=== PATIENT | female | born 1960 | race Caucasian/White ===

== ENCOUNTER 2020-05-15 18:43 | Emergency (ER) | payer MEDICARE, SELFPAY ==
--- NOTE | ~2020-05-15 | XR_ITS ---
EXAMINATION: XR chest 1V portable EXAM DATE: 05/15/2020 19:47 INDICATION: Shortness of breath, cough, fever for 5 days. TECHNIQUE: Portable AP frontal chest x-ray was obtained. Comparison is made to prior examination from 04/24/2010. FINDINGS: The lungs are clear. There are no pleural effusions. The cardiomediastinal silhouette is within normal limits. There is no pneumothorax suspected. Moderate thoracic scoliosis. Cervical fus ion hardware. Old bilateral rib fractures. IMPRESSION: No acute cardiopulmonary findings. Reviewed, dictated and finalized at location A. ON ATTENDANT
[2020-05-15 19:07] VITALS: BP 158/85; PULSE 89; RESP 18; TEMP 36.9; O2SAT 99
[2020-05-15] MEDS: SODIUM CHLORIDE 0.9% IV 1,000 ML 999 ML IV CONT (19:22)
[2020-05-15 19:28] LABS: Basophils Percent Auto 0.4 % (0.2-1.2); Eosinophils Absolute Auto 0.1 K/mm3 (0-0.3); Eosinophils Percent Auto 1.5 % (0-4.4); Hematocrit 38.5 % (37.0-47.0); Hemoglobin 13.2 g/dL (12.0-15.0); Immature Granulocyte Absolute 0.02 K/mm3 (0.00-0.031); Immature Granulocyte Percent A 0.4 % (0-0.5); Lymphocytes Absolute Auto 2.45 K/mm3 (0.9-3.2); Lymphocytes Percent Auto 47.3 % (18.3-44.2); Mean Corpuscular HGB Conc 34.3 g/dl (32-36); Mean Corpuscular Hemoglobin 31.4 pg (26-34); Mean Corpuscular Volume 91.7 fl (80-100); Mean Platelet Volume 10.6 fl (7.4-10.4); Monocytes Absolute Auto 0.5 K/mm3 (0.1-0.6); Monocytes Percent Auto 8.9 % (2.6-8.5); Neutrophils Absolute Auto 2.2 K/mm3 (1.3-6.7); Neutrophils Percent Auto 41.5 % (45.5-73.1); Platelet Count Result 206 k/mm3 (150-375); Red Cell Distribution Width 13.3 % (11.5-14.5); White Blood Count 5.2 K/mm3 (4.5-10.0)
[2020-05-15 19:39] LABS: Lactic Acid Reflex 0.7 mmol/L (0.7-2.1)
[2020-05-15 19:43] LABS: Alanine Aminotransferase 30 U/L (4-35); Albumin Level 4.2 g/dL (3.5-5.1); Alkaline Phosphatase 83 U/L (38-126); Anion Gap 5 mmol/L (8-16); Aspartate Amino Transferase 46 U/L (14-36); Bilirubin,Total 0.4 mg/dL (0.2-1.3); Blood Urea Nitrogen 8 mg/dL (7-17); CRP 0.8 mg/dL (<1.0); Calcium 9.1 mg/dL (8.4-10.2); Carbon Dioxide 30 mmol/L (22-30); Chloride 104 mmol/L (98-107); Estimated CRCL calculation 73 ml/min; Estimated Glomerular Filt Rate > 60; Glucose 84 mg/dL (65-105); Potassium 3.3 mmol/L (3.4-5.0); Sodium 139 mmol/L (137-145)
[2020-05-15 19:48] VITALS: BP 142/85; PULSE 81; RESP 16; O2SAT 99
--- NOTE | 2020-05-15 20:03 | ED.GENADULT ---
HPI - General Adult General Chief complaint: Shortness of Breath/Dyspnea Stated complaint: covid symptoms Time Seen by Provider: 05/15/20 18:45 Source: patient Mode of arrival: ambulatory Limitations: no limitations History of Present Illness HPI narrative: Patient is a 59-year-old female who presents with upper respiratory symptoms and shortness of breath and fatigue headache for the last several days unsure as to possible exposures but has been working around people without masks denies vomiting diarrhea chest pain history of pulmonary disease presents in no distress and has not been seen for this complaint on arrival is in the room in no distress and does not appear uncomfortable Related Data Allergies Allergy/AdvReac Type Severity Reaction Status Date / Time codeine Allergy Mild Verified 04/24/10 17:38 Review of Systems Review of Systems: All systems reviewed & are unremarkable except as noted in HPI and below Exam Narrative: Exam Narrative: GENERAL: Well-appearing, well-nourished, and in no acute distress. HEAD: Normocephalic, atraumatic. EYES: PERRLA and EOMI. ENT: Nares clear, no rhinorrhea or epistaxis. Mucous membranes moist. CHEST: Clear to auscultation. No respiratory distress. No wheezes rales or rhonchi HEART: Regular rate and rhythm. No murmur heard. EXTREMITIES: Normal range of motion. No edema. SKIN: Warm, dry, no rash. NEURO: No focal deficits. Alert and oriented x3. PSYCH: Normal mood and affect. Course Course Emergency Course: Patient evaluated at the emergency department hydrated no pneumonia on exam will be tested for COVID-19 afebrile nontoxic-appearing no distress felt appropriate for outpatient reevaluation instructed that she will have to follow with her primary care to get her COVID-19 results she understands this patient advised to self quarantine she agrees with this plan Vital Signs Vital signs: Vital Signs Temperature 98.4 F 05/15/20 19:07 Pulse Rate 89 05/15/20 19:07 Respiratory Rate 18 05/15/20 19:07 Blood Pressure 158/85 H 05/15/20 19:07 Pulse Oximetry 99 05/15/20 19:07 Temperature 98.4 F 05/15/20 19:07 Pulse Rate 81 05/15/20 19:48 Respiratory Rate 16 05/15/20 19:48 Blood Pressure 142/85 H 05/15/20 19:48 Pulse Oximetry 99 05/15/20 19:48 Medical Decision Making MDM Narrative Medical decision making narrative: Discussed case with patient who is nontoxic afebrile without emesis hydrated in the ER felt appropriate for outpatient reevaluation swabbed for Covid agreeing to self quarantine understands that she needs to follow with primary care to get her results Vital Signs Vital Signs: Vital Signs Temperature 98.4 F 05/15/20 19:07 Pulse Rate 89 05/15/20 19:07 Respiratory Rate 18 05/15/20 19:07 Blood Pressure 158/85 H 05/15/20 19:07 Pulse Oximetry 99 05/15/20 19:07 Temperature 98.4 F 05/15/20 19:07 Pulse Rate 81 05/15/20 19:48 Respiratory Rate 16 05/15/20 19:48 Blood Pressure 142/85 H 05/15/20 19:48 Pulse Oximetry 99 05/15/20 19:48 Lab Data Result diagrams: 05/15/20 19:18 05/15/20 19:18 Labs: Lab Results 05/15/20 05/15/20 05/15/20 Range/Units 19:18 19:18 19:18 WBC 5.2 (4.5-10.0) K/mm3 RBC 4.20 (4.2-5.4) M/mm3 Hgb 13.2 (12.0-15.0) g/dL Hct 38.5 (37.0-47.0) % MCV 91.7 (80-100) fl MCH 31.4 (26-34) pg MCHC 34.3 (32-36) g/dl RDW 13.3 (11.5-14.5) % Plt Count 206 (150-375) k/mm3 MPV 10.6 H (7.4-10.4) fl Immature Gran % (Auto) 0.4 (0-0.5) % Neut % (Auto) 41.5 L (45.5-73.1) % Lymph % (Auto) 47.3 H (18.3-44.2) % [place] % (Auto) 8.9 H (2.6-8.5) % Eos % (Auto) 1.5 (0-4.4) % Baso % (Auto) 0.4 (0.2-1.2) % Lymph # (Auto) 2.45 (0.9-3.2) K/mm3 [place] # (Auto) 0.5 (0.1-0.6) K/mm3 Eos # (Auto) 0.1 (0-0.3) K/mm3 Baso # (Auto) 0.0 (0.0-0.1) K/mm3 Abs Immat Gran (auto) 0.02 (0.00-0.031) K/mm
[2020-05-15 20:37] VITALS: BP 138/86; PULSE 82; RESP 16; TEMP 36.8; O2SAT 99
[2020-05-16 17:18] LABS: SARS-CoV-2 RNA PCR Negative
== END 2020-05-15 20:38 | disposition home or self-care (01) ==
PROVIDERS: Emergency Medicine Emergency Medical Services; Emergency Provider Emergency Medicine; PCP Internal Medicine
DX: Z20.828 Contact with and (suspected) exposure to other viral communicable diseases (principal); J06.9 Acute upper respiratory infection, unspecified
CPT/HCPCS: 36415; 71045; 80053; 83605; 85025; 86140; 87635; 96360; 99283; C9803; J7030; U0003

== ENCOUNTER 2021-02-24 10:09 | Outpatient (CLI) | payer MEDICARE, SELFPAY ==
--- NOTE | ~2021-02-24 | XR_ITS ---
XR_CERV2-3V_CR DATE: 02/24/2021 10:56 INDICATION: Neck pain TECHNIQUE: AP, open-mouth, lateral views COMPARISON: 04/24/2010 cervical spine 02/24/2021 thoracic spine FINDINGS: There is been interval anterior and interbody spinal fusion at C4-6. There is mild degenerative disc disease at C2-3 and C3-4. There is moderately prominent degenerative disc disease at C6-7. There is uncovertebral joint spurring in the mid and lower cervical spine. C1 and C2 are normally aligned and the odontoid process is intact. No fracture or dislocation or lock ed facet or prevertebral soft tissue swelling. Prominent rotatory upper thoracic dextroscoliosis IMPRESSION: Status post anterior and interbody spinal fusion at C4-6 Multilevel degenerative disc disease, most pronounced at C6-7 Reviewed, dictated and finalized at Location [facility]. Reviewed, dictated and finalized at location B.
--- NOTE | ~2021-02-24 | XR_ITS ---
XR lumbar spine 2-3V DATE: 02/24/2021 10:56 INDICATION: Back pain. No injury or fall TECHNIQUE: AP, lateral, coned lateral lumbosacral views COMPARISON: None FINDINGS: There is prominent rotatory levoscoliosis of the lower thoracic and lumbar spine. There is severe degenerative disc disease of the lumbar spine. No fracture or bone destruction of the lumbar spine is evident. No spondylolisthesis is noted. The sacroiliac joints are intact. Surgical clips, right upper quadrant, consistent with cholecystectomy. IMPRESSION: Prominent rotatory levoscoliosis and severe degenerative disc disease Reviewed, dictated and finalized at location B. IMPRESSION: Prominent rotatory levoscoliosis and severe degenerative disc disea se
--- NOTE | ~2021-02-24 | XR_ITS ---
XR thoracic spine 3V DATE: 02/24/2021 10:56 INDICATION: Back pain. No fall or injury. TECHNIQUE: AP, lateral and swimmer views COMPARISON: None FINDINGS: Status post anterior and interbody spinal fusion at C4-C6. There is degenerative disc disea se, mild at C2-3 and C3-4, moderately severe at C6-7. There is prominent rotatory dextroscoliosis the thoracic spine. There is rotatory levoscoliosis of th e lower thoracic and lumbar spine. No fracture or dislocation or bone destruction of the thoracic spine is evident. No paraspinal soft t issue thickening is detected. IMPRESSION: Prominent thoracic spine rotatory scoliosis Reviewed, dictated and finalized at location B.
== END 2021-02-24 10:10 | disposition home or self-care (01) ==
LOC: ANHIMG 10:13
PROVIDERS: PCP Internal Medicine; Visit Provider Psychiatry & Neurology Neurology
DX: M51.36 Other intervertebral disc degeneration, lumbar region (principal); M41.9 Scoliosis, unspecified; Z98.1 Arthrodesis status; M50.323 Other cervical disc degeneration at C6-C7 level
CPT/HCPCS: 72040; 72072; 72100